=== PATIENT | female | born 1970 | race Caucasian/White ===

== ENCOUNTER 2019-06-25 18:02 | Emergency (ER) | payer OTHER, MEDICAID, SELFPAY ==
[2019-06-25 18:20] VITALS: BP 169/89; PULSE 90; RESP 13; TEMP 36.9; O2SAT 99; BMI 27.4
--- NOTE | 2019-06-25 18:29 | DI.RAD.S_ITS ---
PROCEDURE: XR CHEST 2V INDICATIONS: shortness of breath TECHNIQUE: 2 views of the chest were acquired. COMPARISON: None. FINDINGS: Surgical changes and devices: Clip in the epigastric region.. Lungs and pleura: Diffuse prominent interstitial markings. Blunting of the left costophrenic angle due to small pleural effusion. No pneumothorax. Mediastinum: Mediastinal contours are normal. Heart size is normal. Bones and chest wall: No suspicious bony abnormalities. Soft tissues appear unremarkable. IMPRESSION: Small left pleural effusion. Diffuse prominence of interstitial markings. This could be due to fluid overload or interstitial disease. Dictated by: Jaskaran Kelsey M.D. on 06/25/2019 at 20:00 Approved by: Jaskaran Kelsey M.D. on 06/25/2019 at 20:01
--- NOTE | 2019-06-25 18:30 | ED.SOB ---
HPI - SOB/Dyspnea General Chief Complaint: Shortness of Breath/Dyspnea Stated Complaint: sent by MD CHF exacerbation Time Seen by Provider: 06/25/19 18:25 Source: patient Mode of arrival: Wheelchair Limitations: no limitations History of Present Illness HPI Narrative: 49-year-old female former smoker with history of hemochromatosis, alcohol abuse, liver failure, status post tips procedure presents at the request of her primary care provider for evaluation of possible acute exacerbation of CHF. The patient reports increasing fatigue and shortness of breath with minimal exertion as well as a 30-40 lb weight gain in the past 2-3 weeks. She denies any runny nose, sore throat or cough. She has had no fever or chills. She has persistent nausea but denies any ongoing vomiting, diarrhea nor dysuria, frequency or urgency. She denies any change in her medications and has had no dietary indiscretions MD Complaint: shortness of breath Onset (ago): day(s) Severity: moderate Consistency/Duration: constant Relieving factors: rest Exacerbating factors: exertion Known history of: congestive heart failure Related Data Allergies Allergy/AdvReac Type Severity Reaction Status Date / Time acetaminophen [From Tylenol] Allergy Verified 06/25/19 18:26 NSAIDS (Non-Steroidal Allergy Verified 06/25/19 18:26 Anti-Inflamma Review of Systems Review of Systems ROS Unobtainable: All systems reviewed & are unremarkable except as noted in HPI and below Constitutional Constitutional: Denies chills, Reports fatigue, Denies fever(s), Denies frequent falls, Denies lethargy and Reports weakness Eyes Eyes: Denies change in vision, Denies eye discharge, Denies irritation and Denies loss of vision ENT Ears, Nose, Mouth, and Throat: Denies change in voice, Denies dizziness, Denies neck pain, Denies sore throat and Denies throat swelling Cardiovascular Cardiovascular: Denies chest pain, Denies irregular heart rhythm, Denies lightheadedness, Denies palpitations, Reports dyspnea, Reports dyspnea on exertion and Denies orthopnea Respiratory Respiratory: Denies cough, Reports dyspnea, Reports dyspnea on exertion and Denies wheezing Gastrointestinal Gastrointestinal: Denies abdominal pain, Denies change in bowel habits, Denies diarrhea, Denies nausea and Denies vomiting Genitourinary Genitourinary: Denies hematuria, Denies flank pain, Denies urinary incontinence and Denies urinary urgency Musculoskeletal Musculoskeletal: Denies back pain, Denies muscle weakness, Denies neck pain, Denies numbness and Denies tingling Integumentary/Breasts Skin/Breast: Denies pruritus, Denies erythema, Denies rash and Denies wounds Neurologic Neurologic: Denies behavioral changes, Denies confusion, Denies dizziness, Denies frequent falls, Denies loss of vision, Denies numbness, Denies tingling and Reports weakness Psychiatric Psychiatric: Denies anxiety, Denies behavioral changes, Denies confusion, Denies depression, Denies homicidal ideation and Denies suicidal ideation Endocrine Endocrine: Reports fatigue, Denies flushing and Denies palpitations Hematologic/Lymphatic Hematologic/Lymphatic: Denies easy bruising Allergic/Immunologic Allergic/Immunologic: Denies urticaria, Denies throat swelling and Denies wheezing Patient History Medical History (Updated 06/26/19 @ 02:17 by Gerard Dickens DO) Alcohol abuse (Acute) Cirrhosis (Acute) Esophageal varices (Acute) Gastric AVM (Acute) Hepatic encephalopathy (Acute) Hepatitis B (Acute) Hepatitis C (Acute) Portal hypertensive gastropathy (Acute) Surgical History (Updated 06/25/19 @ 19:29 by Gerard Dickens DO) S/P TIPS (transjugular intrahepatic portosystemic shunt) (Acute) Social History Smoking Status: Former smoker Smoking Status: Former smoker alcohol intake frequency: holidays/special occasions only Substance Use Type: does not use Exam Narrative Exam Narrative: GENERAL: [49] year old patient appears older than stated age. Obviously critically ill and chronically malnourished with mild temporal wasting HEAD: Atraumatic. Normocephalic. EYES: Pupils equal round and reactive. Extraocular motions intact. No scleral icterus. No injection or drainage. ENT: Nose without bleeding, purulent drainage. Throat without erythema, tonsillar hypertrophy or exudate. Airway patent. NECK: Trachea midline. Non tender. JVD CARDIOVASCULAR: Regular rate and rhythm without murmurs, gallops, or rubs. RESPIRATORY: Prolonged expiratory phase with bilateral crackles in her bases GASTROINTESTINAL: Abdomen soft, non-tender, fluid wave. Ascites are NOT tense. No redness, warmth to suggest SBP. Large umbilical hernia is easily reducible EXTREMITIES: 2+ pitting edema bilateral lower extremities BACK: Nontender without deformity or crepitance. No flank tenderness. NEURO: AOx3. SKIN: No rash or erythema of visible areas Initial Vital Signs Initial Vital Signs: Vital Signs Temperature 98.4 F 06/25/19 18:20 Pulse Rate 90 06/25/19 18:20 Respiratory Rate 13 06/25/19 18:20 Blood Pressure 169/89 H 06/25/19 18:20 Pulse Oximetry 99 06/25/19 18:20 Course Orders Ordered: ED Orders 06/25/19 18:27 EKG-12 Lead Stat 06/25/19 18:29 XR chest 2V Stat 06/25/19 18:42 Consult to Respiratory Therapy Evaluate & Treat 06/25/19 19:00 Ammonia (NH3) Stat C-Reactive Protein Quant Stat Complete Blood Count AUTO DIFF Stat Comprehensive Metabolic Panel Stat D Dimer Stat Ferritin Stat Lactate (Lactic Acid) Stat Lactate Dehydrogenase Stat Magnesium Stat NT-proBNP (BNP-Adult 18+) Stat Procalcitonin Stat Prothrombin Time INR Stat Troponin & CK Cardiac Panel Stat 06/25/19 20:00 Type and Screen Stat 06/25/19 20:07 CT abdomen pelvis w con Stat CT angio chest PE protocol Stat 06/25/19 20:25 Urinalysis and Microscopic Stat Discontinued Medications Furosemide (Lasix) 60 mg IV NOW ONE Stop: 06/25/19 19:48 Last Admin: 06/25/19 20:17 Dose: 60 mg Documented by: CSIEDLE Hydromorphone HCl (Dilaudid) 0.5 mg IV NOW ONE Stop: 06/25/19 19:02 Last Admin: 06/25/19 19:45 Dose: 0.5 mg Documented by: CSIEDLE Hydromorphone HCl (Dilaudid) 0.5 mg IV NOW ONE Stop: 06/26/19 01:46 Consultations Consultation #1: discussion with GI at was rather quick, no obvious need for any GI specific interventiion. They are quick to agree with need for transfer and are happy to be involved in consultation, but request admission to hospitalist Consultation #2: Hospitalist at ([facility]) happy to accept. Vital Signs Vital signs: Vital Signs - 8 hr 06/25/19 18:20 06/25/19 19:00 06/25/19 20:21 Temperature 98.4 F 98.6 F Pulse Rate 90 85 88 Respiratory Rate 13 21 11 L Blood Pressure 169/89 H Blood Pressure [Left Arm] 156/83 H 131/72 Pulse Oximetry 99 95 97 MDM - SOB/Dyspnea Medical Records Attestation: I reviewed the patient's medical records. Medical records narrative: Baseline Cr 1.6 Lab Data Result diagrams: 06/25/19 19:00 06/25/19 19:00 Labs: Lab Results 06/25/19 06/25/19 06/25/19 Range/Units 19:00 19:00 19:00 WBC (4.5-11.0) X10^3/uL RBC (4.0-5.2) X10^6/uL Hgb (12.0-16.0) g/dL Hct (36-46) % MCV (80-100) fL MCH (26-34) PG MCHC (30-36) % RDW (11.6-14.8) % Plt Count (150-400) X10^3/uL Neut % (Auto) (50-75) % Lymph % (Auto) (25-40) % [place] % (Auto) (3-14) % Eos % (Auto) (2-4) % Baso % (Auto) (0-2) % Neut # (Auto) (0527-2028) /uL Lymph # (Auto) (3203-2042) /uL [place] # (Auto) (0-900) /uL Eos # (Auto) (0-450) /uL Baso # (Auto) (0-100) /uL PT (10.1-12.7) SECONDS INR (0.9-1.3) D-Dimer 3834 H (<230) ng/mL Sodium (137-145) mmol/L Potassium (3.4-5.1) mmol/L Chloride (98-107) mmol/L Carbon Dioxide (22-32) mmol/L BUN (7-17) mg/dL Creatinine (0.52-1.04) mg/dL Estimated GFR (>60) mL/min BUN/Creatinine Ratio (6-22) Glucose (70-100) mg/dL Lactate (0.7-2.1) mmol/L Calcium (8.4-10.2) mg/dL Magnesium (1.6-2.3) mg/dL Ferritin (11-264) ng/mL Total Bilirubin (0.2-1.3) mg/dL AST (14-36) IU/L ALT (<35) IU/L Alkaline Phosphatase (38-126) U/L Ammonia 47 H (9-30) umol/L Lactate Dehydrogenase (313-618) U/L Total Creatine Kinase (30-135) U/L CK-MB (CK-2) CK-MB (CK-2) Rel Index Troponin I (0.01-0.034) ng/mL C-Reactive Protein (<1.0) mg/dL NT-Pro-B Natriuret Pep 5360 H (<125) pg/mL Total Protein (6.3-8.2) g/dL Albumin (3.5-5.0) g/dL Globulin (1.7-4.1) g/dL Albumin/Globulin Ratio (1.0-2.8) Procalcitonin (<0.5) ng/mL Urine Color Urine Appearance Urine pH (4.5-8.0) Ur Specific [place] (1.000-1.035) Urine Protein (Negative) Urine Glucose (UA) (Negative) g/dL Urine Ketones (NEGATIVE) Urine Occult Blood (Negative) Urine Nitrate (Negative) Urine Bilirubin (NEGATIVE) Urine Urobilinogen (0.2) E.U./dL Ur Leukocyte Esterase (NEGATIVE) Urine RBC (0-5/HPF) Urine WBC (0-5/HPF) Urine Bacteria (None) Ur Culture Indicated? COVID-19 PCR Blood Type Antibody Screen 06/25/19 06/25/19 06/25/19 Range/Units 19:00 19:00 19:00 WBC 6.1 (4.5-11.0) X10^3/uL RBC 2.36 L (4.0-5.2) X10^6/uL Hgb 7.5 L (12.0-16.0) g/dL Hct 22.0 L (36-46) % MCV 93.2 (80-100) fL MCH 31.7 (26-34) PG MCHC 34.0 (30-36) % RDW 19.8 H (11.6-14.8) % Plt Count 131 L (150-400) X10^3/uL Neut % (Auto) 71.9 (50-75) % Lymph % (Auto) 8.2 L (25-40) % [place] % (Auto) 12.5 (3-14) % Eos % (Auto) 5.9 H (2-4) % Baso % (Auto) 1.5 (0-2) % Neut # (Auto) 4400 (9039-6839) /uL Lymph # (Auto) 500 L (8858-3687) /uL [place] # (Auto) 800 (0-900) /uL Eos # (Auto) 400 (0-450) /uL Baso # (Auto) 100 (0-100) /uL PT (10.1-12.7) SECONDS INR (0.9-1.3) D-Dimer (<230) ng/mL Sodium (137-145) mmol/L Potassium (3.4-5.1) mmol/L Chloride (98-107) mmol/L Carbon Dioxide (22-32) mmol/L BUN (7-17) mg/dL Creatinine (0.52-1.04) mg/dL Estimated GFR (>60) mL/min BUN/Creatinine Ratio (6-22) Glucose (70-100) mg/dL Lactate (0.7-2.1) mmol/L Calcium (8.4-10.2) mg/dL Magnesium 2.1 (1.6-2.3) mg/dL Ferritin (11-264) ng/mL Total Bilirubin (0.2-1.3) mg/dL AST (14-36) IU/L ALT (<35) IU/L Alkaline Phosphatase (38-126) U/L Ammonia (9-30) umol/L Lactate Dehydrogenase (313-618) U/L Total Creatine Kinase 93 (30-135) U/L CK-MB (CK-2) TNP CK-MB (CK-2) Rel Index TNP Troponin I 0.054 H (0.01-0.034) ng/mL C-Reactive Protein (<1.0) mg/dL NT-Pro-B Natriuret Pep (<125) pg/mL Total Protein (6.3-8.2) g/dL Albumin (3.5-5.0) g/dL Globulin (1.7-4.1) g/dL Albumin/Globulin Ratio (1.0-2.8) Procalcitonin 0.32 (<0.5) ng/mL Urine Color Urine Appearance Urine pH (4.5-8.0) Ur Specific [place] (1.000-1.035) Urine Protein (Negative) Urine Glucose (UA) (Negative) g/dL Urine Ketones (NEGATIVE) Urine Occult Blood (Negative) Urine Nitrate (Negative) Urine Bilirubin (NEGATIVE) Urine Urobilinogen (0.2) E.U./dL Ur Leukocyte Esterase (NEGATIVE) Urine RBC (0-5/HPF) Urine WBC (0-5/HPF) Urine Bacteria (None) Ur Culture Indicated? COVID-19 PCR Blood Type Antibody Screen 06/25/19 06/25/19 06/25/19 Range/Units 19:00 19:00 19:00 WBC (4.5-11.0) X10^3/uL RBC (4.0-5.2) X10^6/uL Hgb (12.0-16.0) g/dL Hct (36-46) % MCV (80-100) fL MCH (26-34) PG MCHC (30-36) % RDW (11.6-14.8) % Plt Count (150-400) X10^3/uL Neut % (Auto) (50-75) % Lymph % (Auto) (25-40) % [place] % (Auto) (3-14) % Eos % (Auto) (2-4) % Baso % (Auto) (0-2) % Neut # (Auto) (9990-8188) /uL Lymph # (Auto) (7090-9851) /uL [place] # (Auto) (0-900) /uL Eos # (Auto) (0-450) /uL Baso # (Auto) (0-100) /uL PT (10.1-12.7) SECONDS INR (0.9-1.3) D-Dimer (<230) ng/mL Sodium 132 L (137-145) mmol/L Potassium 4.4 (3.4-5.1) mmol/L Chloride 102 (98-107) mmol/L Carbon Dioxide 21 L (22-32) mmol/L BUN 56 H (7-17) mg/dL Creatinine 1.79 H (0.52-1.04) mg/dL Estimated GFR 30.0 L (>60) mL/min BUN/Creatinine Ratio 31.3 H (6-22) Glucose 107 H (70-100) mg/dL Lactate 1.9 (0.7-2.1) mmol/L Calcium 8.0 L (8.4-10.2) mg/dL Magnesium (1.6-2.3) mg/dL Ferritin 33 (11-264) ng/mL Total Bilirubin 3.6 H (0.2-1.3) mg/dL AST 55 H (14-36) IU/L ALT 28 (<35) IU/L Alkaline Phosphatase 148 H (38-126) U/L Ammonia (9-30) umol/L Lactate Dehydrogenase 856 H (313-618) U/L Total Creatine Kinase (30-135) U/L CK-MB (CK-2) CK-MB (CK-2) Rel Index Troponin I (0.01-0.034) ng/mL C-Reactive Protein 2.5 H (<1.0) mg/dL NT-Pro-B Natriuret Pep (<125) pg/mL Total Protein 5.5 L (6.3-8.2) g/dL Albumin 2.3 L (3.5-5.0) g/dL Globulin 3.2 (1.7-4.1) g/dL Albumin/Globulin Ratio 0.7 L (1.0-2.8) Procalcitonin (<0.5) ng/mL Urine Color Urine Appearance Urine pH (4.5-8.0) Ur Specific [place] (1.000-1.035) Urine Protein (Negative) Urine Glucose (UA) (Negative) g/dL Urine Ketones (NEGATIVE) Urine Occult Blood (Negative) Urine Nitrate (Negative) Urine Bilirubin (NEGATIVE) Urine Urobilinogen (0.2) E.U./dL Ur Leukocyte Esterase (NEGATIVE) Urine RBC (0-5/HPF) Urine WBC (0-5/HPF) Urine Bacteria (None) Ur Culture Indicated? COVID-19 PCR Blood Type Antibody Screen 06/25/19 06/25/19 06/25/19 Range/Units 19:00 20:00 20:25 WBC (4.5-11.0) X10^3/uL RBC (4.0-5.2) X10^6/uL Hgb (12.0-16.0) g/dL Hct (36-46) % MCV (80-100) fL MCH (26-34) PG MCHC (30-36) % RDW (11.6-14.8) % Plt Count (150-400) X10^3/uL Neut % (Auto) (50-75) % Lymph % (Auto) (25-40) % [place] % (Auto) (3-14) % Eos % (Auto) (2-4) % Baso % (Auto) (0-2) % Neut # (Auto) (3082-1013) /uL Lymph # (Auto) (2818-3046) /uL [place] # (Auto) (0-900) /uL Eos # (Auto) (0-450) /uL Baso # (Auto) (0-100) /uL PT 18.7 H (10.1-12.7) SECONDS INR 1.6 H (0.9-1.3) D-Dimer (<230) ng/mL Sodium (137-145) mmol/L Potassium (3.4-5.1) mmol/L Chloride (98-107) mmol/L Carbon Dioxide (22-32) mmol/L BUN (7-17) mg/dL Creatinine (0.52-1.04) mg/dL Estimated GFR (>60) mL/min BUN/Creatinine Ratio (6-22) Glucose (70-100) mg/dL Lactate (0.7-2.1) mmol/L Calcium (8.4-10.2) mg/dL Magnesium (1.6-2.3) mg/dL Ferritin (11-264) ng/mL Total Bilirubin (0.2-1.3) mg/dL AST (14-36) IU/L ALT (<35) IU/L Alkaline Phosphatase (38-126) U/L Ammonia (9-30) umol/L Lactate Dehydrogenase (313-618) U/L Total Creatine Kinase (30-135) U/L CK-MB (CK-2) CK-MB (CK-2) Rel Index Troponin I (0.01-0.034) ng/mL C-Reactive Protein (<1.0) mg/dL NT-Pro-B Natriuret Pep (<125) pg/mL Total Protein (6.3-8.2) g/dL Albumin (3.5-5.0) g/dL Globulin (1.7-4.1) g/dL Albumin/Globulin Ratio (1.0-2.8) Procalcitonin (<0.5) ng/mL Urine Color Yellow Urine Appearance Clear Urine pH 7.0 (4.5-8.0) Ur Specific [place] 1.010 (1.000-1.035) Urine Protein Negative (Negative) Urine Glucose (UA) Negative (Negative) g/dL Urine Ketones Negative (NEGATIVE) Urine Occult Blood 1+ H (Negative) Urine Nitrate Negative (Negative) Urine Bilirubin Negative (NEGATIVE) Urine Urobilinogen 0.2 (0.2) E.U./dL Ur Leukocyte Esterase Negative (NEGATIVE) Urine RBC 1-5/hpf (0-5/HPF) Urine WBC None seen (0-5/HPF) Urine Bacteria None seen (None) Ur Culture Indicated? Cult not indicated COVID-19 PCR Blood Type B Positive Antibody Screen Positive 06/25/19 06/25/19 Range/Units 20:27 20:27 WBC (4.5-11.0) X10^3/uL RBC (4.0-5.2) X10^6/uL Hgb (12.0-16.0) g/dL Hct (36-46) % MCV (80-100) fL MCH (26-34) PG MCHC (30-36) % RDW (11.6-14.8) % Plt Count (150-400) X10^3/uL Neut % (Auto) (50-75) % Lymph % (Auto) (25-40) % [place] % (Auto) (3-14) % Eos % (Auto) (2-4) % Baso % (Auto) (0-2) % Neut # (Auto) (5547-8449) /uL Lymph # (Auto) (0272-8377) /uL [place] # (Auto) (0-900) /uL Eos # (Auto) (0-450) /uL Baso # (Auto) (0-100) /uL PT (10.1-12.7) SECONDS INR (0.9-1.3) D-Dimer (<230) ng/mL Sodium (137-145) mmol/L Potassium (3.4-5.1) mmol/L Chloride (98-107) mmol/L Carbon Dioxide (22-32) mmol/L BUN (7-17) mg/dL Creatinine (0.52-1.04) mg/dL Estimated GFR (>60) mL/min BUN/Creatinine Ratio (6-22) Glucose (70-100) mg/dL Lactate (0.7-2.1) mmol/L Calcium (8.4-10.2) mg/dL Magnesium (1.6-2.3) mg/dL Ferritin (11-264) ng/mL Total Bilirubin (0.2-1.3) mg/dL AST (14-36) IU/L ALT (<35) IU/L Alkaline Phosphatase (38-126) U/L Ammonia (9-30) umol/L Lactate Dehydrogenase (313-618) U/L Total Creatine Kinase (30-135) U/L CK-MB (CK-2) CK-MB (CK-2) Rel Index Troponin I (0.01-0.034) ng/mL C-Reactive Protein (<1.0) mg/dL NT-Pro-B Natriuret Pep (<125) pg/mL Total Protein (6.3-8.2) g/dL Albumin (3.5-5.0) g/dL Globulin (1.7-4.1) g/dL Albumin/Globulin Ratio (1.0-2.8) Procalcitonin (<0.5) ng/mL Urine Color Urine Appearance Urine pH (4.5-8.0) Ur Specific [place] (1.000-1.035) Urine Protein (Negative) Urine Glucose (UA) (Negative) g/dL Urine Ketones (NEGATIVE) Urine Occult Blood (Negative) Urine Nitrate (Negative) Urine Bilirubin (NEGATIVE) Urine Urobilinogen (0.2) E.U./dL Ur Leukocyte Esterase (NEGATIVE) Urine RBC (0-5/HPF) Urine WBC (0-5/HPF) Urine Bacteria (None) Ur Culture Indicated? COVID-19 PCR Cancelled Negative Blood Type Antibody Screen MDM Narrative Medical decision making narrative: patient with hepatorenal syndrome presents at request of her PCP for evaluation and stabilization given worsening symptoms of increasing SOB and significant weight gain despite use of loop diuretics. Patient has mild ULISES, ascites, generalized pain, relative anemia (multiple antibodies) and requires transfer due to need for access to her team of GI/Liver specialists. Patient understands and is in complete agreement with the plan. Discharge Plan Departure Patient Disposition: General Acute Hospital Clinical Impression: Hepatorenal syndrome, Hemolytic anemia, Anasarca Referrals: Montana Hoover MD [Primary Care Provider] -
[2019-06-25 19:00] VITALS: BP 156/83; PULSE 85; RESP 21; O2SAT 95
[2019-06-25 19:10] LABS: Add Manual Diff / Slide Review NO; Basophils Absolute Auto 100 /uL (0-100); Basophils Percent Auto 1.5 % (0-2); Eosinophils Absolute Auto 400 /uL (0-450); Eosinophils Percent Auto 5.9 % (2-4); Hemoglobin 7.5 g/dL (12.0-16.0); Lymphocytes Absolute Auto 500 /uL (1100-4500); Lymphocytes Percent Auto 8.2 % (25-40); Mean Corpuscular Hemoglobin 31.7 PG (26-34); Mean Corpuscular Volume 93.2 fL (80-100); Monocytes Absolute Auto 800 /uL (0-900); Monocytes Percent Auto 12.5 % (3-14); Neutrophils Absolute Auto 4400 /uL (1500-7000); Neutrophils Percent Auto 71.9 % (50-75); Platelet Count 131 X10^3/uL (150-400); Red Blood Cell Count 2.36 X10^6/uL (4.0-5.2); Red Cell Distribution Width 19.8 % (11.6-14.8); White Blood Cell Count 6.1 X10^3/uL (4.5-11.0)
[2019-06-25 19:21] LABS: Ammonia (NH3) 47 umol/L (9-30); Lactate (Lactic Acid) 1.9 mmol/L (0.7-2.1)
[2019-06-25 19:25] LABS: Alanine Aminotransferase 28 IU/L (<35); Albumin 2.3 g/dL (3.5-5.0); Albumin Globulin Ratio 0.7 (1.0-2.8); Alkaline Phosphatase 148 U/L (38-126); Aspartate Aminotransferase 55 IU/L (14-36); BUN Creatinine Ratio 31.3 (6-22); Bilirubin Total 3.6 mg/dL (0.2-1.3); Blood Urea Nitrogen 56 mg/dL (7-17); Carbon Dioxide 21 mmol/L (22-32); Chloride 102 mmol/L (98-107); Globulin 3.2 g/dL (1.7-4.1); Glucose 107 mg/dL (70-100); HEMOLYSIS < 15 (0-50); Potassium 4.4 mmol/L (3.4-5.1); Sodium 132 mmol/L (137-145); Total Protein 5.5 g/dL (6.3-8.2)
[2019-06-25 19:26] LABS: Creatine Kinase 93 U/L (30-135); Magnesium 2.1 mg/dL (1.6-2.3)
[2019-06-25 19:27] LABS: D Dimer 3834 ng/mL (<230)
[2019-06-25 19:29] LABS: C-Reactive Protein Quant 2.5 mg/dL (<1.0); Lactate Dehydrogenase 856 U/L (313-618)
[2019-06-25 19:33] LABS: NT-proBNP (BNP-Adult 18+) 5360 pg/mL (<125)
[2019-06-25 19:38] LABS: Troponin I 0.054 ng/mL (0.01-0.034)
[2019-06-25 19:40] LABS: Procalcitonin 0.32 ng/mL (<0.5)
[2019-06-25] MEDS: HYDROMORPHONE 0.5 MG INJ IV (19:45)
[2019-06-25 20:02] LABS: Ferritin 33 ng/mL (11-264)
--- NOTE | 2019-06-25 20:07 | DI.CT.S_ITS ---
PROCEDURE: CT ABDOMEN PELVIS W CON INDICATIONS: abdominal pain, TIPS, anemia TECHNIQUE: After the administration of intravenous contrast, 5 mm thick sections acquired from the diaphragm to the symphysis. 5 mm coronal and sagittal reformats were acquired. For radiation dose reduction, the following was used: automated exposure control, adjustment of mA and/or kV according to patient size. COMPARISON: None. FINDINGS: Image quality: Excellent. ABDOMEN: Lung bases: Septal thickening. Bilateral pleural effusions. Heart size is prominent. Mitral annular calcification. Solid organs: Cirrhotic liver morphology. The geographic hypoenhancement of the right hepatic lobe. Right hepatic vein to right portal vein TIPS shunt. The catheter opacifies with contrast. Gallbladder is mildly distended with increased conspicuity of the gallbladder wall likely due to surrounding ascites. No calcified gallstones. Biliary system is non dilated. Pancreas enhances normally. Spleen is normal in size and enhancement. No adrenal nodules. Kidneys demonstrate normal size and enhancement, without hydronephrosis. Peritoneum and bowel: No bowel obstruction. Probable mild thickening of the loops of small bowel in the right lower abdomen. Large volume of ascites. No pneumoperitoneum. Nodes and vessels: No retroperitoneal or mesenteric adenopathy by size criteria. Aorta and inferior vena cava are normal in size. Small sammie-splenic varices. The splenic vein is dilated. No filling defect in the portal vein. Conventional and patent hepatic arterial anatomy. SMV and IMV are patent. Miscellaneous: Large right ventral abdominal wall hernia. Small abdominal wall varices. PELVIS: Genitourinary: Bladder wall thickness is normal. Uterus is unremarkable. Miscellaneous: No inguinal hernias or adenopathy. Bones: No suspicious bony lesions. No vertebral body compression fractures. IMPRESSION: 1. Large volume of ascites. Anasarca. 2. Tips shunt opacifies with contrast. -Consider further evaluation with TIPS Doppler ultrasound. 3. Cirrhosis and findings of portal hypertension. 4. Mild thickening loops of small bowel in the lower abdomen could represent portal enteropathy. Dictated by: Jaskaran Kelsey M.D. on 06/25/2019 at 20:55 Approved by: Jaskaran Kelsey M.D. on 06/25/2019 at 21:04
--- NOTE | 2019-06-25 20:07 | DI.CT.S_ITS ---
PROCEDURE: CT ANGIO CHEST PE PROTOCOL INDICATIONS: CP, SOB, critical DDimer TECHNIQUE: After the administration of intravenous contrast, 2 mm thick sections acquired from the pulmonary apices to the posterior costophrenic angles. 3-dimensional maximum intensity projection (MIP) coronal and sagittal reformats were then acquired through the thorax. For radiation dose reduction, the following was used: automated exposure control, adjustment of mA and/or kV according to patient size. COMPARISON: [facility], CR, XR CHEST 2V, 06/25/2019, 18:41. FINDINGS: Image quality: Good. Diagnostic to the level of the segmental pulmonary arteries. Pulmonary arteries: Pulmonary arteries are normal in size, and demonstrate no intraluminal filling defects to suggest central pulmonary embolism. Lungs and pleura: Diffuse mild septal thickening with an upper lobe and peripheral predominance. Patchy groundglass opacity bilaterally. Small to moderate left and trace right pleural effusions. No pneumothorax. Central and peripheral airways are patent. Mediastinum: Heart size is normal, without pericardial effusion. No mediastinal or hilar adenopathy. Thoracic aorta is normal in caliber and enhancement. Esophagus is normal in caliber, without hiatal hernia. Bones and chest wall: No suspicious bony lesions. Ribs and thoracic spine appear intact throughout. Thyroid gland is unremarkable. No axillary or supraclavicular adenopathy. Anasarca. Abdomen: Please see separately dictated CT abdomen/pelvis. IMPRESSION: 1. No pulmonary embolism. 2. Fluid overload/CHF. Small to moderate left pleural effusion and trace right pleural effusion. 3. Mild patchy groundglass opacities bilaterally. Favor pulmonary edema rather than infectious/inflammatory etiology. 4. Anasarca. Dictated by: Jaskaran Kelsey M.D. on 06/25/2019 at 20:48 Approved by: Jaskaran Kelsey M.D. on 06/25/2019 at 20:54
[2019-06-25 20:10] LABS: INR 1.6 (0.9-1.3); Prothrombin Time 18.7 SECONDS (10.1-12.7)
[2019-06-25] MEDS: FUROSEMIDE 100 MG/10 ML VIAL 60 MG IV (20:17)
[2019-06-25 20:21] VITALS: BP 131/72; PULSE 88; RESP 11; TEMP 37; O2SAT 97
[2019-06-25 21:14] LABS: Bacteria Urine None Seen; WBC Urine None Seen (0-5/HPF)
[2019-06-25 21:23] LABS: Appearance Urine UA CLEAR; Bilirubin Urine UA NEGATIVE (NEGATIVE); Color Urine UA YELLOW; Glucose Urine UA NEGATIVE (Negative); Ketones Urine UA NEGATIVE (NEGATIVE); Leukocyte Esterase Urine UA NEGATIVE (NEGATIVE); Nitrite Urine UA NEGATIVE (Negative); Occult Blood Urine UA 1+ (Negative); Protein Urine UA NEGATIVE (Negative); Urobilinogen Urine UA 0.2 E.U./dL (0.2)
[2019-06-25 22:22] LABS: Culture Indicated Urine Cult Not Indicated; RBC Urine 1-5/HPF (0-5/HPF)
[2019-06-25 23:00] VITALS: BP 133/63; PULSE 65; RESP 18; O2SAT 95
[2019-06-26 00:11] LABS: COVID19 -Nasal RAPID Negative (Negative)
[2019-06-26 01:00] VITALS: BP 140/65; PULSE 64; RESP 18; O2SAT 97
[2019-06-26] MEDS: HYDROMORPHONE 0.5 MG INJ IV (02:21)
[2019-06-26 02:55] VITALS: BP 122/58; PULSE 65; RESP 16; O2SAT 97
--- NOTE | 2019-06-26 12:34 | PC.NURSE ---
Pts daughter called to find out where her mother was transferred too. She was made aware that her mother was transferred to , but no other details were given
== END 2019-06-26 03:03 | disposition short-term general hospital (02) ==
PROVIDERS: Emergency Provider Emergency Medicine; PCP Family Medicine; Referring Provider Family Medicine
DX: K76.7 Hepatorenal syndrome (principal); D58.9 Hereditary hemolytic anemia, unspecified; R60.1 Generalized edema; R10.9 Unspecified abdominal pain; R06.02 Shortness of breath; I50.9 Heart failure, unspecified
CPT/HCPCS: 36415; 71046; 71275; 74177; 80053; 81001; 82140; 82550; 82728; 83605; 83615; 83735; 83880; 84145; 84484; 85025; 85379; 85610; 86140; 86850; 86870; 86900; 86901; 87635; 93005; 96374; 96375; 96376; 99285; J1170; J1940